=== PATIENT | female | born 1960 | race Hispanic/Latino ===

== ENCOUNTER 2017-08-04 10:59 | Emergency (ER) | payer OTHER ==
[2017-08-04] MEDS ORDERED: CATAPRES PO ONE (12:36)
[2017-08-04] MEDS ORDERED: TORADOL IM ONE (13:05)
--- NOTE | 2017-08-04 13:06 | Emergency Department Report ---
Chief Complaint: Back Pain/Injury Stated Complaint: RIGHT FOOT PAIN Time Seen by Provider: 08/04/17 12:34 - HPI History of Present Illness: The patient is a 56-year-old female presents with hours of back pain. The patient reports 1 month of constant back pain, sharp and exploding in quality, 10/10 in severity, exacerbated with movement. She says that she has a long- standing history of chronic back pain and degenerative disc disease. The patient denies blunt trauma to the back, fall, fever, chills, night sweats, saddle anesthesia, paresthesias, numbness or tingling in the legs, leg weakness , urine or bowel incontinence or retention, difficulty ambulating, or other focal neurological deficits. The patient also denies redness or swelling to the back, IV drug use, history of cancer. - Exam Vital Signs: Vital Signs 08/04/17 11:04 Temperature 98.2 F Pulse Rate 93 H Respiratory 18 Rate Blood Pressure 159/106 O2 Sat by Pulse 97 Oximetry MSE screening note: Focused history and physical exam performed. Due to findings the following was ordered: ED Disposition for MSE Condition: Stable Referrals: PRIMARY CARE, [Primary Care Provider] - 3-5 Days
[2017-08-04 14:37] VITALS: BP 120/70
--- NOTE | 2017-08-04 15:11 | Emergency Department Report ---
HPI - General Chief Complaint: Back Pain/Injury Time Seen by Provider: 08/04/17 12:34 - HPI HPI: The patient is a 56-year-old female presents with hours of back pain. The patient reports 1 month of constant back pain, sharp and exploding in quality, 10/10 in severity, exacerbated with movement. She says that she has a long- standing history of chronic back pain and degenerative disc disease. The patient denies blunt trauma to the back, fall, fever, chills, night sweats, saddle anesthesia, paresthesias, numbness or tingling in the legs, leg weakness , urine or bowel incontinence or retention, difficulty ambulating, or other focal neurological deficits. The patient also denies redness or swelling to the back, IV drug use, history of cancer. Patient is also a request then that her foot needs to be taken care of she has calluses and she needs M shave down. She says right now she does not have insurance because they are reevaluated her social security for disability and they did an x-ray on her and she doesn't know the result because they're evaluated and at present. Patient denies any swelling to her feet. She states that she has calluses that needs to be taking care of. She says she has long-standing stenosis scoliosis and lower back pain and she is one in the document to states that she can be off for 10 days. Denies any abdominal pain, shortness of breath or chest pain. ED Past Medical Hx - Past Medical History Previous Medical History?: Yes Additional medical history: STENOSIS/ BACK PAIN/ SCOLIOSIS - Surgical History Past Surgical History?: Yes Additional Surgical History: LAP FOR TUBAL - Family History Family history: hypertension - Social History Smoking Status: Current Every Day Smoker Substance Use Type: None - Medications Home Medications: Home Medications Medication Instructions Recorded Confirmed Last Taken Type traMADol [Ultram] 50 mg PO Q6HR PRN #12 tablet 08/04/17 Unknown Rx ED Review of Systems ROS: Stated complaint: RIGHT FOOT PAIN Other details as noted in HPI Comment: All other systems reviewed and negative Constitutional: no symptoms reported Respiratory: no symptoms reported Cardiovascular: denies: chest pain, palpitations, dyspnea on exertion, edema, syncope, paroxysmal nocturnal dyspnea Gastrointestinal: denies: abdominal pain, nausea, vomiting, diarrhea, constipation, hematemesis, melena, hematochezia Genitourinary: denies: dysuria, hematuria Musculoskeletal: back pain, arthralgia. denies: myalgia Skin: denies: rash Neurological: denies: headache, weakness, numbness, paresthesias, confusion, abnormal gait, vertigo Physical Exam - Physical Exam Vital Signs: Vital Signs 08/04/17 08/04/17 11:04 14:36 Temperature 98.2 F Pulse Rate 93 H Respiratory 18 Rate Blood Pressure 159/106 Blood Pressure 120/70 [Left] O2 Sat by Pulse 97 Oximetry General: This is a 56-year-old female well-nourished well-developed in no acute distress. Patient is nontoxic in appearance Physical Exam: Head: Normocephalic, atraumatic, no abrasion, no bruising and no contusion. Eyes: Biateral pupils equal and reactive to light, bilateral EOM intact.. Bilateral conjunctival and sclera without injection, normal accommodation. Mouth: Moist, no pharyngeal exudate or erythema. No peritonsillar abscesses. Uvula is midline and oral airways patent. Neck: Supple, No Cervical adenopathy, full range of motion and no C-spine tenderness. No swelling or tracheal deviation normal reflexes Cardiovascular: S1, S2. Regular rate and rhythm. No murmur. Capillary refill is less then 3 seconds. Lungs: Clear to auscultate bilaterally. No rhonchi, wheezes or rales. No chest wall tenderness. No chest contusion. No bruising to chest. MSK: Strength 5/5 in all extremities. No joint deformity or crepitus. Normal inspection. Full range of motion to all extremities. No laceration, abrasion or ecchymotic area noted. Abdomen: Non-tender to palpate in all quadrants, no guarding or rebound tenderness, positive bowel sounds in all quadrants. No CVA tenderness. No hernia, bruit or mass. No rigidity or distention. Extremities: No clubbing, cyanosis or edema. +2 pulses. No neurovascular compromise. Patient has bunions to feed but no signs of infection or swelling noted. Skin: Clean, dry and intact. No rash or lesions. Neurological: GCS at 15, Pt is alert and oriented 3 speech is clear . 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 Normal gait. Negative Romberg and no pronator drift. Normal Reflexes. No motor or sensory deficit Back: No vertebral tenderness, no paraspinal tenderness. The bend over and touch his toes without any difficulties. Ambulates without any difficulties. Psych: Normal mood and behavior ED Course Vital Signs 08/04/17 08/04/17 11:04 14:36 Temperature 98.2 F Pulse Rate 93 H Respiratory 18 Rate Blood Pressure 159/106 Blood Pressure 120/70 [Left] O2 Sat by Pulse 97 Oximetry - Reevaluation(s) Reevaluation #1: 08/04/17 15:12 Patient given clonidine 0.2 mg by mouth for elevated blood pressure which her blood pressures now normalized. She did say her blood pressure goes up when she is in pain. She was given Toradol 30 mg IM for pain which she says her pain is better ED Medical Decision Making - Medical Decision Making ED course: Patient complaining of lower back pain which is chronic and she is currently being treated but says that she doesn't have insurance at present due to SSI reevaluation. She is also complaining the bunion 2 foot that she wants to be shaved. Patient is with lower back pain and she refuses x-ray because she said that she had x-ray last week or [employer]SI for reevaluation of disability. Her blood pressure was up at 159/106 and she was given clonidine 0.2 mg in the emergency room and her blood pressure is now normalized. I discussed patient she needs to keep a log of her blood pressure and take to primary care visit for reevaluation. Patient also one in foot care and I told her she will need to follow-up with butadiene converter operator as emergency room does not specialize in shaved and bunions and corn. I will refer her to a butadiene converter operator. I did tell her that she needs to call [facility] to schedule an appointment for primary care visit and she agrees. Patient discharged home with prescription for Ultram. She was given Toradol 30 mg IM in emergency room for back pain and foot pain and she voiced relief. Discharged home with her family member in stable condition to follow up with primary care. Critical care attestation.: If time is entered above; I have spent that time in minutes in the direct care of this critically ill patient, excluding procedure time. ED Disposition Clinical Impression: Acute exacerbation of chronic low back pain, Arthralgia of both feet, Bilateral bunions, Elevated blood pressure reading in office without diagnosis of hypertension Disposition: TO HOME OR SELFCARE Is pt being admited?: No Does the pt Need Aspirin: No Condition: Stable Instructions: Arthralgia (ED), Chronic Back Pain (ED), Hypertension (ED), Heart Healthy Diet (ED) Additional Instructions: You refused your back exam today. Follow-up with butadiene converter operator as instructed and they can take care of your bunions, corns and calluses Follow-up with [facility] for primary care and remembered it taking blood pressure and keep a log to take with you to your visit Follow-up with Dr. Steinberg who is orthopedic doctor for you chronic back pain. Take Ultram as prescribed but please do not drive or operate heavy machinery while taking this medication as it causes drowsiness Prescriptions: traMADol [Ultram] 50 mg PO Q6HR PRN #12 tablet PRN Reason: Pain Referrals: PRIMARY CARE, [Primary Care Provider] - 2-3 Days [facility] [Outside] - 2-3 Days AQUILINO STEINBERG MD [Staff Physician] - 2-3 Days KADEN DELAROSA DPM [Staff Physician] - 2-3 Days Forms: Work/School Release Form(ED)
== END 2017-08-04 15:32 | disposition home or self-care (01) ==
LOC: ED 10:59
DX: M54.5 Low back pain (principal); I10 Essential (primary) hypertension; F17.200 Nicotine dependence, unspecified, uncomplicated
CPT/HCPCS: 96372; 99282; J1885

== ENCOUNTER 2021-07-06 02:21 | Emergency (ER) | payer SELFPAY ==
[2021-07-06 05:35] VITALS: BP 161/70
== END 2021-07-06 05:00 ==
LOC: ED 02:21
DX: S42.212A Unspecified displaced fracture of surgical neck of left humerus, initial encounter for closed fracture (principal); F17.200 Nicotine dependence, unspecified, uncomplicated; X58.XXXA Exposure to other specified factors, initial encounter; Y93.89 Activity, other specified; Y92.89 Other specified places as the place of occurrence of the external cause; Y99.8 Other external cause status; S42.211A Unspecified displaced fracture of surgical neck of right humerus, initial encounter for closed fracture; S42.292A Other displaced fracture of upper end of left humerus, initial encounter for closed fracture
CPT/HCPCS: 99283